=== PATIENT | male | born 1950 | race African-American/Black ===

== ENCOUNTER 2019-06-01 10:23 | Inpatient (IN) ==
[2019-06-01 11:04] LABS: BASO# 0.02 X1000 (0.0-0.2); BASO% 0.4 % (0.0-0.8); EOS# 0.02 X1000 (0.0-0.7); EOS% 0.4 % (0.0-10.0); HEMATOCRIT 36.2 % (42.0-52.0); HEMOGLOBIN 11.6 g/dL (14.0-18.0); IMM GRAN# 0.01 X1000 (0.0-0.04); IMM GRAN% 0.2 % (0.0-0.5); LYMPH# 0.83 X1000 (1.2-3.4); LYMPH% 16.6 % (20.5-51.1); MCH 31.5 PG (27-31); MCV 98.4 FL (81-99); MONO# 0.96 X1000 (0.11-0.59); MONO% 19.2 % (1.7-9.3); MPV 8.3 FL (7.4-10.4); NEUT# 3.15 X1000 (1.4-6.5); NEUT% 63.2 % (42.2-75.2); PLT 296 X1000 (130-400); RBC 3.68 XMIL (4.7-6.1); RDW 12.4 % (11.5-14.5); WBC 4.99 X1000 (4.8-10.8)
[2019-06-01 11:24] LABS: ALBUMIN 3.5 g/dL (3.5-5.0); CALCIUM 8.4 mg/dL (8.8-10.2); POTASSIUM 4.3 mmol/L (3.5-5.1); TOTAL BILIRUBIN 0.3 mg/dL (0.20-1.00); TOTAL PROTEIN 6.8 g/dL (6.3-8.3)
[2019-06-01 11:30] LABS: CREATININE 12.5 mg/dL (0.7-1.2)
[2019-06-01 12:09] LABS: CALCIUM 8.4 mg/dL (8.8-10.2); POTASSIUM 5.2 mmol/L (3.5-5.1)
[2019-06-01] MEDS: ROCEPHIN 1 GM in NS 50 ML IV SCH (12:45)
[2019-06-01] MEDS: NS 1,000 ML IV SCH ×2 (12:45→15:20)
--- NOTE | 2019-06-01 12:46 | PROVIDER DOCUMENTATION ---
This chart was entered by Phil Franklin Scribe, acting as scribe for Romain Hernández MD. HPI-General Adult - General Chief Complaint: Dizziness Stated Complaint: DIZZY Time Seen by Provider: 06/01/19 11:07 Source: patient Allergies/Adverse Reactions: Patient Allergies Allergy/AdvReac Type Severity Reaction Status Date / Time No Known Allergies Allergy Verified 06/01/19 10:45 Home Medications: Home Medication List Medication Instructions Recorded Confirmed Last Taken Type Unobtainable [Home Meds 06/01/19 06/01/19 Unknown History Unobtainable] - History of Present Illness -Gen Adult Nature of Presenting Problems: 68 yom present to the ed with c/o Dizzy. pt was here on 05-28-19 and was told had Kidney Stones and was put on Narco and Cipro. pt stated " since being put on the 2 medications I've been dizzy and started to have Hiccups , i can walk straight when i slow down but have to hold on to a wall sometimes." pt stated "[employer]OR the hiccups stopped in the car." pt stated " since on medications i cant pee , like a dribble." pt stated no prior hx of dizzy spells. pt stated no other changes in medications. Location of Pain/Injury: reports: none Pain Radiation: reports: no radiation Quality of Pain: reports: none Severity: reports: mild Onset/Duration: reports: 24 hours ago Timing: reports: still present, intermittent (hiccups) Context/Activities at Onset: reports: none Modifying Factors: improves with: nothing Associated Symptoms: reports: dizziness, vomiting (pt stated hx of this). denies: arm pain, back/neck pain, chest pain, constipation, cough, diarrhea, fever/chills, headaches, nausea, shortness of breath Similar Symptoms Previously?: No Recently seen or treated by another doctor?: No Review of Systems - Adult - REVIEW OF SYSTEMS - ADULT Constitutional: denies: chills, fever Eyes: denies: decreased vision, blurred vision, double vision, eye pain Ears, Nose, Mouth & Throat: denies: hoarseness, throat pain, throat swelling Cardiovascular: denies: chest pain, heart murmur, palpitations, syncope Respiratory: denies: shortness of breath, wheezing Gastrointestinal: reports: vomiting (chronic hx). denies: abdominal pain, constipation, diarrhea, nausea Genitourinary: reports: see HPI. denies: dysuria, flank pain Musculoskeletal: denies: back pain, neck pain Integumentary: reports: no symptoms reported Neurological: reports: see HPI, dizziness/vertigo. denies: headache/migraines, loss of balance, numbness, slurred speech, syncope Psychiatric: reports: no symptoms reported Endocrine: reports: no symptoms reported Hematologic/Lymphatic: reports: no symptoms reported Allergic/Immunologic: reports: no symptoms reported All Other Systems: Reviewed and Negative Past History - Adult - PAST MEDICAL HISTORY-ADULT Review of Records: reports: Old Records Reviewed, Nursing Assessment Review, Medications Reviewed, Social history reviewed & non-contributory. Major Childhood Illnesses: reports: denies history Cardiovascular: reports: HTN. denies: cardiac disease, blood clots, CAD Respiratory: reports: denies history Gastrointestinal: reports: denies history Obstetrical/Gynecological: reports: denies history Genitourinary: reports: kidney stones, other (hiv) Musculoskeletal: reports: arthritis. denies: cancer, chronic pain Neurological: reports: denies history Psychiatric: reports: denies history Endocrine/Immune: reports: HIV/AIDS Other Conditions: reports: denies history - PRIOR SURGERIES/PROCEDURES Surgical/Procedure History: reports: hernia repair, orthopedic (extremity), other (kidney donor) - PRIOR HOSPITALIZATIONS Prior Hospitalizations: reports: none - IMMUNIZATION STATUS Childhood Immunizations: See Nurse Assessment Flu Vaccine: See Nurse Assessment - FAMILY HISTORY Family History: reviewed, not pertinent - SOCIAL HISTORY Smoking: denies Substance Use: alcohol Living Situation: alone Physical Exam-General - PHYSICAL EXAM-ADULT Initial Vital Signs Reviewed: Yes - CONSTITUTIONAL General Appearance: appears well, alert, no apparent distress. negative: lethargic, slow to respond - EYES Eyes: PERRL/EOMI - HEAD, EARS, NOSE, MOUTH & THROAT HENMT: moist mucous membranes, normal ENT inspection, TMs normal - NECK Neck: non-tender, full range of motion, supple, normal inspection - RESPIRATORY Respiratory: chest non-tender, lungs clear, normal breath sounds, no pleuratic chest pain, no respiratory distress, no accessory muscle use - CARDIOVASCULAR Cardiovascular: no edema, no gallop, no JVD, no murmur, tachycardia (108) - GASTROINTESTINAL (ABDOMEN) Abdominal Exam: normal bowel sounds, non tender, soft, no organomegaly, no pulsatile mass - GENITOURINARY Male Genitalia: deferred Rectal Exam: deferred Hemoccult Exam: deferred - LYMPHATIC Lymphatic: no adenopathy - MUSCULOSKELETAL Back Exam: normal inspection, no CVA tenderness, no vertebral tenderness Extremity: normal range of motion, non-tender, normal gait - SKIN Integumentary: normal color, normal turgor, warm/dry - NEUROLOGIC Neurologic: grossly normal, no motor/sensory deficits - PSYCHIATRIC Psych/Mental Status: normal mood/affect, normal thought content, normal thought process, oriented x 3 Progress - PLAN OF CARE/RESULTS Progress/Plan/Lab Results: Vital Signs - 8 hr 06/01/19 10:27 Temperature 98.7 F Pulse Rate 108 H Respiratory Rate 20 Blood Pressure 121/79 O2 Sat by Pulse Oximetry 99 Laboratory Results - last 24 hr 06/01/19 10:55 WBC 4.99 RBC 3.68 L Hgb 11.6 L Hct 36.2 L MCV 98.4 MCH 31.5 H MCHC 32.0 L RDW Std Deviation 12.4 Plt Count 296 MPV 8.3 Immature Gran % (Auto) 0.2 Neut % (Auto) 63.2 Lymph % (Auto) 16.6 L Potter % (Auto) 19.2 H Eos % (Auto) 0.4 Baso % (Auto) 0.4 Immature Gran # (Auto) 0.01 Neut # (Auto) 3.15 Lymph # (Auto) 0.83 L Potter # (Auto) 0.96 H Eos # (Auto) 0.02 Baso # (Auto) 0.02 Orders Category Date Time Status CBC WITH ELECTRONIC DIFF [HEME] Stat Lab 06/01/19 10:55 Completed COMPREHENSIVE METABOLIC PANEL [CHEM] Stat Lab 06/01/19 10:[address] [URINALYSIS] Stat Lab 06/01/19 10:48 Uncollected Generalized Adult Illness >60 Stat Oth 06/01/19 10:48 Ordered EKG [EKG] Stat Ther 06/01/19 10:49 Ordered Result Diagrams: 06/01/19 10:55 06/01/19 11:50 - EKG 1 Time of EKG reading by physician:: 11:00 (no change ) EKG Read and Signed by:: Romain Hernández EKG Interpretation (*Must complete 3 of following elements*): Normal Rate: 74 Rhythm: NSR Reeders: normal QRS: normal [place] Interval: normal ST Wave: normal - CONSULTS/PCP/HOSPITALIST Notification #1 *Consult/PCP/Hospitalist*: on the phone with Pharmacy Time Discussed: 11:41 (call [facility] to check on all meds pt is on ) Departure - Departure Date of Disposition Decision: 06/01/19 Time of Disposition Decision: 12:45 DIAGNOSIS: Acute renal failure, Kidney stones Disposition: ADMITTED INPATIENT 09 Certified Medical Emergency: Emergent Condition: Stable - Critical Care Note This patient required my direct & personal management of CC.: No Attestation - Physician/ RAYSA Attestation Patient care was provided by Advanced Practice Provider:: No The physician spent face to face time with patient:: Yes Advanced Practice Provider documentation review:: Supervising physician onsite and consulted in the evaluation and care of this patient. The physician did have a face to face encounter with the patient. This chart was documented by the indicated scribe, (Phil Franklin, Maurice) and accurately reflects the services I performed and decisions made by me, Romain Hernández MD, as attested by the provider's signature.
[2019-06-01] MEDS ORDERED: MORPHINE IV PRN (13:06)
[2019-06-01] MEDS ORDERED: ZOFRAN IV PRN (13:06)
[2019-06-01] MEDS ORDERED: TYLENOL PO PRN (13:06)
--- NOTE | 2019-06-01 13:25 | HISTORY AND PHYSICAL ---
PRIMARY CARE PHYSICIAN: [facility] in [place]. INFECTIOUS DISEASE PHYSICIAN: Dr. Ross in [place], [place]. CHIEF COMPLAINT: Right flank pain, dizziness, and dysuria over the past several days that has progressively worsened. HISTORY OF PRESENTING ILLNESS: This is a 68-year-old, male who presented to [facility] ER with complaints of worsening right flank pain, dizziness, and dysuria. States he is only able to dribble a little bit of urine. He was noted to have been in the ER on 05/28/2019 with the complaints of right flank pain. Had a CT of the abdomen and pelvis that showed a large obstructing stone at the right ureteropelvic junction that measured 14.4 mm with moderate to severe hydronephrosis in his solitary right kidney. At that time, he was sent home on some antibiotics and pain medication, and was to follow up outpatient with urology. When he was here on that date, he had a creatinine of 1.7. Today, he returns and has a creatinine of 12.5 with a sodium of 131. Continues to have right flank pain, difficulty urinating, and painful urination, along with dizziness when he tries to walk, so he is being admitted to the [facility] for urology and nephrology consultation for further evaluation and treatment. PAST MEDICAL HISTORY: Kidney stones, HIV, hypertension. PAST SURGICAL HISTORY: Left nephrectomy in 1979 and a hernia repair. FAMILY HISTORY: Reviewed and noncontributory. SOCIAL HISTORY: He currently lives alone. Denies any tobacco, alcohol, or illicit drug use. ALLERGIES: He has no known drug allergies. HOME MEDICATIONS: We will need to obtain a list, reconcile, review, and restart as appropriate. I will place an order for nursing to update and confirm home medications. LABORATORY DATA: Showed a white blood cell count of 4.99, hemoglobin 11.6, hematocrit 36.2, platelets 296,000. Sodium 131, potassium 4.3, chloride 94, CO2 of 17, BUN of 45, creatinine 12.5, glucose 105. His CT of the abdomen and pelvis done on 05/28/2019 showed a solitary right kidney with a large right ureteropelvic junction stone causing severe obstruction, that was measured at 14.4 mm, with moderate to severe hydronephrosis with peripheral edema. REVIEW OF SYSTEMS: He denied any fever, chills, blurred vision. He did have dizziness, right flank pain, and dysuria. Denied any abdominal pain or constipation. PHYSICAL EXAMINATION: VITAL SIGNS: On arrival, he had a temperature of 98.7 degrees, pulse 108, respirations 20, blood pressure 121/79, saturating 99% on room air. GENERAL: This is a 68-year-old, male who is sitting up in the bed and answers questions appropriately. HEENT: Normocephalic, atraumatic. Normal ENT inspection. Oropharynx and nares are clear. Eyes: Pupils are equal, round, and reactive to light and accommodation. Extraocular movements are intact. NECK: Normal inspection. Normal range of motion. LUNGS: Clear to auscultation bilaterally with equal lung expansion and chest wall movement. HEART: With regular rate and rhythm. No murmurs, rubs, or gallops. ABDOMEN: Soft, nontender, nondistended. Bowel sounds are present x4 quadrants. He did have right CVA tenderness. MUSCULOSKELETAL: He had 5/5 strength x4 extremities. NEUROLOGICAL: The cranial nerves 2-12 appear grossly intact. ASSESSMENT: 1. A large right kidney stone. 2. Acute kidney injury. 3. Hyponatremia. 4. Human immunodeficiency virus, positive history of. PLAN: He will be transferred to the medical unit at [facility], held NPO, placed on normal saline at 100 mL an hour, Rocephin 1 g IV q.24, morphine 2 mg IV q.4 hours p.r.n. Placed on SCDs for DVT prophylaxis. We will consult urology and nephrology. Telemetry. Update and confirm home medications. We will do a urine creatinine, protein, and sodium. We will recheck a CBC and BMP in the a.m. Further orders after seen by attending and by consultants. Dictated by RAHEEM Nicole for Sreedhar Galindo MD cc: RAHEEM Nicole MD
[2019-06-01] MEDS ORDERED: DIPRIVAN 1% ONE (13:26)
[2019-06-01] MEDS ORDERED: TORADOL ONE (13:28)
[2019-06-01] MEDS ORDERED: XYLOCAINE-MPF 2% ONE (13:28)
[2019-06-01] MEDS ORDERED: ZOFRAN ONE (13:28)
[2019-06-01] MEDS ORDERED: DECADRON ONE (13:49)
[2019-06-01] MEDS ORDERED: EPHEDRINE ONE (13:53)
--- NOTE | 2019-06-01 14:15 | CONSULTATION ---
DATE OF CONSULTATION: 06/01/2019 ATTENDING AND REFERRING PHYSICIAN: Hospitalist. CHIEF COMPLAINT: Right flank pain and dizziness. HISTORY OF PRESENT ILLNESS: This 68-year-old male has a history of renal lithiasis. Last week, he developed severe right flank pain. He was seen in the emergency room where a CT stone search revealed a 14 to 15 mm stone completely obstructing the right kidney. His left kidney is absent. The patient states he went home and took pain medicine but then developed dizziness. He states he had a stone removed several years ago but no other urologic surgery other then the donor nephrectomy. He states he normally voids without difficulty. He denies problems with kidney failure. His creatinine level was 0.7 in April of 2018, 1.7 on 05/28/2019, and 13 today. PAST MEDICAL HISTORY: Renal lithiasis, HIV infection, hypertension. CURRENT MEDICATIONS: Documented on the chart. PAST SURGICAL HISTORY: Hernia repair, left nephrectomy, what sounds like cystoscopic exam, ureteroscopy, and stone extraction. SOCIAL HISTORY: No tobacco or alcohol use. ALLERGIES: No known drug allergies. REVIEW OF SYSTEMS: He denies any problems with diabetes, heart disease, strokes, or seizures. PHYSICAL EXAMINATION: General: A very thin, age apparent, normally developed, black male, oriented in all ways, and cooperative. HEENT: Normal for age. Lungs: Clear. Cardiovascular: Regular rate and rhythm. Abdomen: Flat, soft, nontender. No hepatosplenomegaly or masses. Normal bowel sounds. Back: No CVA tenderness. Examination and Rectal Examination: Deferred until surgery. Extremities: No clubbing, cyanosis, or edema. Neurologic: No focal deficits. LABORATORY DATA: BUN 45, creatinine 13. CBC has a white count of 4.99, hemoglobin 11.6, hematocrit of 36.2. CT stone search is as noted in the HPI. IMPRESSION: 1. Solitary right kidney with an obstructing right ureteropelvic junction stone. 2. History of human immunodeficiency virus. PLAN: Cystoscopic exam, place right double-J stent, right retrograde pyelogram. The planned procedure, benefits versus risks, possible complications including bleeding, infection, not being able to place the stent, need for further stone surgery were discussed. He seems to understand and desires to proceed. Will start Flomax after Stent placement. Will schedule right ESWL after renal function recovers. Thank you for this consultation. cc: Vitaliy Henderson MD MTDD
--- NOTE | 2019-06-01 16:19 | HISTORY AND PHYSICAL ---
The patient came in with abdominal pain and difficulty urinating and poor urine output. He was seen on the and diagnosed with a kidney stone at that point. He had a very large kidney stone 14.1 UPJ junction and with hydroureter and hydronephrosis at that time, his creatinine was only 1.7, really did improve on Cipro, I guess there was a presumption that maybe passed on its own. In any case today shows back up to the ER, now his creatinine is 12 increased to 13 presumably since he has only 1 kidney with obstructive uropathy is the diagnosis. He will be transferred [facility] for urology definitive treatment. I will consult renal service. There is no acute indication for dialysis, but his creatinine is 13 and we will continue to follow. He is HIV positive. He says his viral load is undetectable. We will check a CD4 count. We do not have any record of his medications though so we will need to get that done. cc: Sreedhar Galindo MD
[2019-06-01 19:48] LABS: URINE SOURCE CLEAN CATCH
[2019-06-01 19:53] LABS: BILIRUBIN URINE NEGATIVE (NEGATIVE); BLOOD URINE MODERATE (NEGATIVE); COLOR STRAW; GLUCOSE URINE 200 mg/dL (NEGATIVE); KETONE URINE 40 mg/dL (NEGATIVE); LEUKOCYTES URINE NEGATIVE (NEGATIVE); NITRITE URINE NEGATIVE (NEGATIVE); PH URINE 7.5; PROTEIN URINE 200 mg/dL (NEGATIVE); SP GRAVITY URINE 1.007; TURBIDITY URINE CLEAR (CLEAR); UR EPITHELIAL CELLS <10 /HPF (<10); URINE BACTERIA NEGATIVE /HPF; URINE RBC TNTC /HPF (<10); URINE WBC <10 /HPF (<10); UROBILINOGEN URINE NORMAL (NORMAL)
[2019-06-01 20:56] LABS: UR CREAT RANDOM 33.8 mg/dL (14-26); UR PROT RANDOM 137.3 mg/dL
[2019-06-01] MEDS: PERIDEX MT SCH (22:01)
[2019-06-02] MEDS: NS 1,000 ML IV SCH (00:42)
[2019-06-02] MEDS: PRILOSEC PO SCH (06:03)
[2019-06-02 06:58] LABS: HEMATOCRIT 33.9 % (42.0-52.0); HEMOGLOBIN 11.2 g/dL (14.0-18.0); LYMPH# 0.28 X1000 (1.2-3.4); LYMPH% 9.5 % (20.5-51.1); MCH 32.3 PG (27-31); MCV 97.7 FL (81-99); MONO# 0.42 X1000 (0.11-0.59); MONO% 14.2 % (1.7-9.3); MPV 9.1 FL (7.4-10.4); NEUT# 2.25 X1000 (1.4-6.5); NEUT% 76.3 % (42.2-75.2); PLT 267 X1000 (130-400); RBC 3.47 XMIL (4.7-6.1); RDW 12.1 % (11.5-14.5); WBC 2.95 X1000 (4.8-10.8)
--- NOTE | 2019-06-02 07:32 | EKG Report ---
Test Performed on : 06/01/2019 11:00:48 AM Test Reason : dizziness Blood Pressure : / mmHG Vent. Rate : 074 BPM Atrial Rate : 074 BPM P-R Int : 166 ms QRS Dur : 082 ms QT Int : 416 ms P-R-T Axes : 057 010 047 degrees QTc Int : 461 ms Normal sinus rhythm. Normal ECG No previous ECGs available Unconfirmed Result
[2019-06-02 07:54] LABS: CALCIUM 7.1 mg/dL (8.8-10.2); POTASSIUM 4.2 mmol/L (3.5-5.1)
[2019-06-02 08:09] LABS: CREATININE 10.6 mg/dL (0.7-1.2)
[2019-06-02] MEDS: FLOMAX PO SCH (09:04)
[2019-06-02] MEDS: PERIDEX MT SCH ×2 (09:04→23:54)
[2019-06-02] MEDS: LR 1,000 ML IV SCH ×2 (09:40→20:07)
--- NOTE | 2019-06-02 11:09 | Diag Imaging Result Doc PS360 ---
FLUROSCOPY CYSTO - 06/01/2019 INDICATION: STENT PLACEMENT R URETER TECHNIQUE: Fluoroscopy and multiple views of the abdomen. The exam was performed by the patient's urologist. Seven images were obtained. COMPARISON: CT from 05/28/2019 FINDINGS: The right ureter and renal collecting system was instrumented with a wire. A right nephroureteral stent was placed in good position. IMPRESSION: No complication. Electronically signed by Sony Adame 06/02/2019 11:07 AM
--- NOTE | 2019-06-02 11:35 | NEPHROLOGY CONSULTATION ---
DATE: 06/02/2019 Chief complaint: I was having side pain and couldnt pee. HPI: Mr. Eagle is a 68 year old male with a past medical history of kidney stones, left nephrectomy, HIV, and hypertension. He presented to the ED after a 3 day history of left flank pain and anuria. He voices vomiting once during this time and has been having hiccups for a week. He denies chills, fever, night sweats, chest pain, or shortness of breath. He was seen in the ED on 05/28/19 for flank pain with an abdominal/pelvic CT showing a 14.4 mm obstructing stone at the right ureterpelvic junction with moderate to severe hydronephrosis. His Creatinine was 1.7 at the time. He was sent home with antibiotics and pain medication and was to follow up with urology. Yesterday his Creatinine was 13. He had a right JJ stent placed and has voided 2675ml urine. Past medical history: peripheral neuropathy, can you stones, HIV, and hypertension. Past surgical history: left nephrectomy in 1979 and a hernia repair. Social history: Lives at home by hisself, drinks socially, chews tobacco, denies illicit drug use. Family history: none. Allergies: no known Home medications: unable to obtain. Review of systems: neurological: Denies altered mental status or confusion. Eyes: denies blurriness, dryness, or change in visual acuity. ENT: denies tinnitus or change in hearing. Integumentary: denies color change, rash or itching. Respiratory: denies shortness of breath and orthopnea. Denies productive cough. Cardiovascular: denies palpitations or chest pain. GI: Denies constipation and nausea and vomiting. : admits to making no urine at the time of presentation to the hospital. Endocrine: denies excessive thirst or hunger. Musculoskeletal: denies any increase in weakness or extremity pain. Labs: WBC 2.95, hemoglobin 11.2, hematocrit 33.9, platelet count to 67, sodium 133, potassium 4.2, chloride 97, carbon dioxide 13, anion gap 23, BUN 41, creatinine 10.6, calcium 7.1, TSH 0.23, intake 1701, output 2675. Physical Exam: corneal arcus, s4, clear lungs, no edema, Assessment and Plan: 1.Acute kidney injury related to hydronephrosis of a solitary kidney. He had a JJ stent placed yesterday with good urine output. Creatinine improving. 2. Metabolic acidosis. Change IV fluids to Lactated ringers. 3. Medications reviewed. No changes. cc: Martin Neville MD MTDD
--- NOTE | 2019-06-02 12:11 | PROGRESS NOTE ---
DATE: 06/02/2019 SUBJECTIVE: Patient reports feeling okay. Denies any fever or chills. OBJECTIVE: Vital Signs: Temperature 97.4 degrees, heart rate 101, respiratory rate 18, blood pressure 133/81, O2 saturation 100% on room air. General Examination: This is a 68-year-old chronically ill-appearing, male, lying in bed in no acute distress. Cardiovascular exam: S1, S2 heard. No murmurs, gallops or rubs. Regular rate and rhythm. Respiratory exam: Clear bilaterally to auscultation. No work of breathing or using accessory muscles. Abdomen: Soft, nontender to palpation. Bowel sounds present. No organomegaly. Extremities: No clubbing, cyanosis, or edema. Peripheral pulses present in both legs. Neurological exam: Patient alert, oriented x3. Moves 4 extremities. LABORATORY DATA: White cell count 2.95, hemoglobin 11.2, hematocrit 33.9, platelets 267. BMP reveals creatinine 10.6 with potassium 4.2, BUN 41. TSH 0.63. ASSESSMENT AND PLAN: 1. Solitary kidney with obstructing right ureteropelvic junction stone, status post cystoscopy on stent placement. Patient has been seen by Dr. Henderson. Procedure done yesterday. Now, the patient is feeling better. Not complaining of any pain. His creatinine has improved from 13 to 10.6. At this point, we will continue to monitor. Urology and Nephrology following this patient. 2. Acute kidney injury secondary to obstructive uropathy. That continues to improve. We will continue to monitor. 3. Hyponatremia. We will continue to monitor the basic metabolic panel. 4. Human immunodeficiency virus. We have checked Cd4, C5, Ctc4; we will see what it shows. cc: Alejandro Wise MD
[2019-06-02] MEDS: ROCEPHIN 1 GM in NS 50 ML IV SCH (13:47)
--- NOTE | 2019-06-02 16:17 | OPERATIVE NOTE ---
PROCEDURE DATE: 06/01/2019 SURGEON: Vitaliy Henderson MD. PREOPERATIVE DIAGNOSIS: Solitary right kidney with an obstructing right ureteropelvic junction stone and renal failure. POSTOPERATIVE DIAGNOSIS: PROCEDURE PERFORMED: Solitary right kidney with an obstructing right ureteropelvic junction stone and renal failure. PROCEDURE PERFORMED: Cystoscopic exam, place right double-J stent. ANESTHESIA: General via laryngeal mask. FINDINGS: Cystoscopic exam: Urethra-greater than 21 [place] without stricture. Prostate-mild coaptation lateral lobes, elevated bladder neck, length approximately 3.5 cm. Bladder-normal. Right ureteral orifice, left ureteral orifice is not visualized, grade 1-2 trabeculations. No diverticula. No papillary lesions. INDICATION FOR PROCEDURE: This 68-year-old male has a solitary right kidney. 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 He has a history of renal lithiasis and developed severe right flank pain. His creatinine was 13. CT stone search revealed a 8 mm stone at the right ureteral pelvic junction with marked right hydronephrosis. DESCRIPTION OF PROCEDURE: After informed consent was obtained from the patient and him receiving IV antibiotics, he was taken the main OR cystoscopy room, placed in the supine position. General anesthesia via laryngeal mask was achieved. He was then placed in the low lithotomy position and prepped and draped in the usual sterile fashion for cystoscopic exam. A 21-[place] cystoscope was passed the patient's urethra, prostate, and bladder, findings noted above. A 0.035 ZIPwire was passed through the cystoscope, engaged right ureteral orifice, advanced up into the kidney and was able to be pushed past the obstructing stone. A 7-[place], 24 cm double-J stent was passed over the ZIPwire and up into the kidney. The renal end was verified by fluoroscopic exam, bladder end directly visualized. Stent removal string was removed. The bladder was drained. Cystoscope was removed. Rectal exam was performed that revealed a prostate of about 30 g, smooth, and symmetric. He tolerated the procedure well. Estimated blood loss was 0. He was taken to recovery room in good condition. cc: Vitaliy Henderson MD
[2019-06-03] MEDS: LR 1,000 ML IV SCH (06:14)
[2019-06-03] MEDS: PRILOSEC PO SCH (06:15)
[2019-06-03 06:55] LABS: BASO# 0.01 X1000 (0.0-0.2); BASO% 0.3 % (0.0-0.8); EOS# 0.01 X1000 (0.0-0.7); EOS% 0.3 % (0.0-10.0); HEMATOCRIT 30.5 % (42.0-52.0); HEMOGLOBIN 10.1 g/dL (14.0-18.0); LYMPH# 1.03 X1000 (1.2-3.4); LYMPH% 28.7 % (20.5-51.1); MCH 31.9 PG (27-31); MCHC 33.1 g/dL (33-37); MCV 96.2 FL (81-99); MONO# 0.69 X1000 (0.11-0.59); MONO% 19.2 % (1.7-9.3); NEUT# 1.85 X1000 (1.4-6.5); NEUT% 51.5 % (42.2-75.2); PLT 300 X1000 (130-400); RBC 3.17 XMIL (4.7-6.1); RDW 12.1 % (11.5-14.5); WBC 3.59 X1000 (4.8-10.8)
[2019-06-03 07:10] LABS: ALBUMIN 2.9 g/dL (3.5-5.0); CREATININE 8.2 mg/dL (0.7-1.2); PHOSPHORUS 4.6 mg/dL (2.7-4.5); POTASSIUM 2.9 mmol/L (3.5-5.1)
[2019-06-03] MEDS: PERIDEX MT SCH (08:38)
[2019-06-03] MEDS: FLOMAX PO SCH (08:38)
[2019-06-03] MEDS: POTASSIUM CHLORIDE 20 MEQ/SWI 20 MEQ/100 ML IVPB IV SCH ×2 (10:43→14:19)
--- NOTE | 2019-06-03 11:33 | NEPHROLOGY PROGRESS NOTE ---
DATE: 06/03/2019 Subjective: lying in bed awake watching tv, voices voiding without difficulty with no change in color. Denies pain or burning. Objective: vitals. Temperature 98.1, pulse 75, respiration 16, blood pressure 143/87, 02 sat 98% on room air. General: HEENT: corneal arcus Neck: supple, 6cm JVD CardiovasculR: S1,s2 regular rate and rhythm, no murmur or gallop Respiratory: clear bilaterally with equal air Abdomen: soft, non tender, non distended, bowel sounds present : non inspected Extremities: no edema, clubbing, or cyanosis Neurological: alert and oriented to person, place, and time Labs: intake 4154, output 2725. WBC 3.59, hemoglobin 10.1, hematocrit 30.5, platelet count 300, sodium 139, potassium 2.9, chloride 105, carbon dioxide 18, anion gap 16, BUN 30, creatinine 8.2, calcium 8.0. Impression: Acute kidney injury related to hydronephrosis. Stent in place with good urine output. Creatinine improving to 8. When he discharges, we will follow up with him in the office. 2. Slightly metabolic acidosis. Improving. 3. Hypokalemia. Will replace today 4. Medications reviewed. No changes. cc: Martin Neville MD MTDD
[2019-06-03] MEDS: ROCEPHIN 1 GM in NS 50 ML IV SCH (12:51)
[2019-06-03 15:21] VITALS: BP 157/92
[2019-06-03] MEDS ORDERED: FLU VACCINE IM ONE (16:44)
--- NOTE | 2019-06-04 12:46 | DISCHARGE SUMMARY ---
ADMISSION DATE: 06/01/2019 DISCHARGE DATE: 06/03/2019 DISCHARGE DIAGNOSES: 1. Acute kidney injury. 2. Obstructive uropathy with a large ureteral stone. PROCEDURES: Cystoscopy with JJ placement. CONSULTATIONS: 1. Dr. Henderson, Urology. 2. Dr. Neville, Nephrology. HISTORY: Briefly, a 68-year-old male , HIV positive, who has been having no urine output for about 24 hours. He was found to have when he came to the ER initially he had a large obstructing stone. He has a solitary kidney. His previous one had been resected. In any case, he was found to have a creatinine of 12. Repeat was around 13 when his creatinine had been 1.7 a few days prior. The patient was urgently transferred to the main campus where Dr. Henderson discussed the possibility of cystoscopy, right double JJ stent, right retrograde pyelogram. The patient was stabilized on these medications. Dr. Neville evaluated him, and changed his fluids and his medications. The patient's kidney function continued to improve. Urine output was decent. Hemoglobin and hematocrit was 10 and 30, BUN and creatinine was down to 30 and 8.2. His potassium was 2.9. His magnesium was 18, phos was a little high at 4.6. Albumin was low at 2.9, but we decided to let him go. I am going to get repeat labs on Sunday which we will give him a prescription. He needs to avoid all nephrotoxic drugs. We will continue to monitor closely. He will need to come back and get that set up as well. He will need antibiotic Omnicef 300 p.o. b.i.d. for 5 days and then Flomax 0.4 daily. Discharge condition is stable. Refer to Dr. Henderson and Dr. Neville. TIME SPENT: 32 minute discharge. cc: MD Martin Donaldson MD Dr. Hughes
== END 2019-06-03 17:34 | disposition home or self-care (01) | DRG 660 ==
LOC: P.ED 10:23 → SUATTDRO 12:27 → 4N 12:27
PROVIDERS: ATTEND Internal Medicine